=== PATIENT | female | born 1960 | race Caucasian/White ===

== ENCOUNTER 2020-06-24 09:29 | Observation (INO) ==
[~2020-06-24 09:29] MED LIST: Buffered Lidocaine 1% SYRIN 1 ml INTRADERM ONE; Lactated Ringers 1000 ml BAG 1,000 ML IV SCH
[2020-06-24] MEDS ORDERED: Propofol 10 MG/ML 20 ML BTL ONE ×2 (09:46→12:39)
[2020-06-24] MEDS ORDERED: ROPIVACAINE 5 MG/ML 30 ML BTL (0.5%) ONE (09:46)
[2020-06-24] MEDS ORDERED: Bupivacaine 0.5% SDV PF 30ML VIAL ONE ×2 (09:46→13:34)
[2020-06-24] MEDS ORDERED: Phenylephrine IV 10 MG/ML 1 ml VIAL ONE (09:47)
[2020-06-24] MEDS ORDERED: Phenylephrine 40 mcg/mL 10mL (400mcg) SYRINGE ONE (09:47)
[2020-06-24] MEDS ORDERED: Midazolam 5 mg/5 ml VIAL 1 mg/ml 5 ml VIAL (5 mg) ONE (09:47)
[2020-06-24] MEDS ORDERED: Buffered Lidocaine 1% SYRIN 1 ml INTRADERM ONE (09:49)
[2020-06-24] MEDS ORDERED: ceFAZolin 2 GM PREMIX 2 GM/50 ML BAG ONE (09:49)
[2020-06-24] MEDS ORDERED: Lidocaine 1% MPF 5 ML VIAL ONE (11:18)
[2020-06-24] MEDS ORDERED: fentaNYL 100 mcg/2 ml 50 MCG/ML VIAL IV PRN (13:01)
[2020-06-24] MEDS ORDERED: Ondansetron 4 mg VIAL 2 MG/ML 2 ml VIAL IV PRN ×2 (13:01→14:54)
[2020-06-24] MEDS ORDERED: diPHENhydraMINE IV 50 MG/ML 1 ml VIAL (BENADRYL) IV PRN ×2 (13:01→14:54)
[2020-06-24] MEDS ORDERED: Naloxone 0.4 mg VIAL 0.4 mg/ml 1 ml VIAL IV PRN (13:01)
[2020-06-24] MEDS ORDERED: Ondansetron ODT 4 mg TAB 4 MG TAB PO PRN (14:54)
[2020-06-24] MEDS ORDERED: Morphine 2 MG/ML SYRINGE IV PRN (14:54)
[2020-06-24] MEDS ORDERED: oxyCODONE/Acetamin 5/325 mg TAB PO PRN ×2 (14:54)
[2020-06-24] MEDS ORDERED: diPHENhydraMINE 25 mg TAB PO PRN (14:54)
[2020-06-24] MEDS ORDERED: Lactulose 30 ml UDC PO PRN (14:54)
[2020-06-24] MEDS ORDERED: Magnesium Hydroxide LIQ 30 ML UDC PO PRN (14:54)
[2020-06-24] MEDS: Lactated Ringers 1000 ml BAG 1,000 ML IV SCH (17:55)
[2020-06-24] MEDS: Magnesium Hydroxide LIQ 30 ML UDC PO SCH (20:17)
[2020-06-24] MEDS: ceFAZolin 1 GM ADVAN 1 GM in NS 0.9% 50 ML 50 ML IVPB SCH (20:17)
[2020-06-25] MEDS ORDERED: Polyethylene Glycol 3350 17 GM PACKET PO PRN (00:01)
[2020-06-25] MEDS: Lactated Ringers 1000 ml BAG 1,000 ML IV SCH (01:27)
[2020-06-25] MEDS: ceFAZolin 1 GM ADVAN 1 GM in NS 0.9% 50 ML 50 ML IVPB SCH ×2 (03:43→11:16)
[2020-06-25 05:45] LABS: Hematocrit 34 % (35-47); Hemoglobin 12.2 g/dL (12.0-16.0); Mean Platelet Volume 8.3 fL (7.4-10.4); Platelet Count 179 10^3/uL (150-450)
[2020-06-25 05:56] LABS: Calcium 8.2 mg/dL (8.6-10.3); EGFR African American 120.7 (>60); EGFR Non-African American 99.7 (>60)
[2020-06-25] MEDS ORDERED: Vitamin THERAPEUTIC TAB PO SCH (09:00)
[2020-06-25] MEDS: Magnesium Hydroxide LIQ 30 ML UDC PO SCH (10:00)
[2020-06-25 12:44] VITALS: BP 106/72
== END 2020-06-25 14:45 | disposition home or self-care (01) ==
LOC: SSU 09:29 → OR 09:29
PROVIDERS: ADMIT Orthopaedic Surgery Adult Reconstructive Orthopaedic Surgery; ATTEND Orthopaedic Surgery Adult Reconstructive Orthopaedic Surgery